=== PATIENT | male | born 1940 | race Caucasian/White ===

== ENCOUNTER 2017-04-08 21:13 | Emergency (ER) | payer MEDICARE, OTHER ==
[~2017-04-08] VITALS: Ht 172.7 cm; Wt 72.7 kg
[~2017-04-08 21:13] MED LIST: ASPIR-LOW81 MG PO; ASPIRIN E.C. 8181 MG PO; CLOPIDOGREL PO; HCTZ 25MG25 MG PO; LIPITOR20 MG PO; LISINOPRIL10 MG PO; NASONEX SPRAY; NITROQUICK0.4 MG SL; PRILOSEC 20MG20 MG PO; PRILOSEC40 MG PO; ZOCOR 40MG40 MG PO; ZOLOFT 100MG100 MG PO
[2017-04-08 21:14] VITALS: BP 185/84
[2017-04-08] MEDS ORDERED: ZANTAC 150MG T150 MG PO (21:39)
[2017-04-08] MEDS ORDERED: LIPITOR 10MG10 MG PO (21:40)
[2017-04-08] MEDS ORDERED: EXELON PAT4.6 MG/24 TD (21:40)
[2017-04-08] MEDS ORDERED: VITAMIN D31000 I1 PO (21:41)
[2017-04-08] MEDS ORDERED: FOLIC ACID 40400 MCG PO (21:41)
[2017-04-08] MEDS ORDERED: PROBIOTIC FORMU1 CAP PO (21:42)
[2017-04-08] MEDS ORDERED: IMODIUM 2MG CAPS2 MG PO (21:42)
[2017-04-08 23:51] VITALS: PULSE 57
== END 2017-04-08 23:51 | disposition home or self-care (01) ==
LOC: COL.ER 21:13
DX: S00.03XA Contusion of scalp, initial encounter (principal); I10 Essential (primary) hypertension; F03.90 Unspecified dementia, unspecified severity, without behavioral disturbance, psychotic disturbance, mood disturbance, and anxiety; E78.5 Hyperlipidemia, unspecified; Z79.82 Long term (current) use of aspirin; W01.198A Fall on same level from slipping, tripping and stumbling with subsequent striking against other object, initial encounter; Y92.009 Unspecified place in unspecified non-institutional (private) residence as the place of occurrence of the external cause

== ENCOUNTER → 2017-04-27 | Outpatient (CLI) | payer MEDICARE, OTHER ==
[~2017-04-27] MED LIST changes: +EXELON PAT4.6 MG/24 TD; +FOLIC ACID 40400 MCG PO; +IMODIUM 2MG CAPS2 MG PO; +LIPITOR 10MG10 MG PO; +PROBIOTIC FORMU1 CAP PO; +VITAMIN D31000 I1 PO; +ZANTAC 150MG T150 MG PO
== END ==
LOC: COL.RAD 09:23
DX: D69.6 Thrombocytopenia, unspecified (principal)

== ENCOUNTER 2017-11-23 09:14 | Day surgery (SDC) | payer MEDICARE, OTHER ==
[~2017-11-23] VITALS: Ht 172.7 cm; Wt 69.9 kg
[2017-11-23] VITALS (7 sets, daily range): BP systolic 109–156; BP diastolic 62–91; PULSE 45–545; TEMP 97.5–97.9
[2017-11-23] MEDS ORDERED: PRIL40 PO (09:50)
== END 2017-11-23 12:43 | disposition home or self-care (01) ==
LOC: SDCO 09:14
DX: D12.2 Benign neoplasm of ascending colon (principal); K63.5 Polyp of colon; K64.0 First degree hemorrhoids; K57.30 Diverticulosis of large intestine without perforation or abscess without bleeding; K29.30 Chronic superficial gastritis without bleeding; K31.7 Polyp of stomach and duodenum; K44.9 Diaphragmatic hernia without obstruction or gangrene; K21.9 Gastro-esophageal reflux disease without esophagitis; D64.9 Anemia, unspecified; K58.0 Irritable bowel syndrome with diarrhea; I25.10 Atherosclerotic heart disease of native coronary artery without angina pectoris; E78.00 Pure hypercholesterolemia, unspecified; I10 Essential (primary) hypertension; G62.9 Polyneuropathy, unspecified; Z79.82 Long term (current) use of aspirin; Z88.0 Allergy status to penicillin; Z88.2 Allergy status to sulfonamides; Z88.1 Allergy status to other antibiotic agents
CPT/HCPCS: J2704; J3010; J7030

== ENCOUNTER 2019-02-02 15:58 | Observation (INO) | payer MEDICARE, OTHER ==
[~2019-02-02] VITALS: Ht 172.7 cm; Wt 72.8 kg
[~2019-02-02 15:58] MED LIST changes: +HCTZ 25MG TAB25 MG PO; -HCTZ 25MG25 MG PO; -NITROQUICK0.4 MG SL; +NITROSTAT0.4 MG/TAB SL; +PRIL40 PO
[2019-02-02 16:33] LABS: BASO % 0.4 % (0.0-2.0); EOS # 0.1 (0.0-0.7); EOS % 1.7 % (0-4.0); GRAN % 70.5 % (42.2-75.2); HEMATOCRIT 37.7 % (42.0-52.0); HEMOGLOBIN 12.6 g/dl (13.5-18.0); LYMPH # 1.3 (1.2-3.4); LYMPH % 18.8 % (20.0-51.0); MEAN CELL VOLUME 95 fl (80.0-100.0); MEAN CORPUSCULAR HEMOGLOBIN 32 pg (27.0-31.0); MEAN CORPUSCULAR HGB CONC 33 g/dl (33.0-37.0); MEAN PLATELET VOLUME 12.2 fl (7.4-10.4); MONO # 0.6 (0.1-0.6); MONO % 8.3 % (1.7-9.3); PLATELET COUNT 106 K/mm3 (130-400); RED BLOOD COUNT 3.98 M/mm3 (4.20-5.60); REDCELL DISTRIBUTION WIDTH-CV 13.4 % (11.5-14.5)
[2019-02-02 16:46] LABS: PROTHROMBIN TIME 11.2 SECONDS (9.7-12.8)
[2019-02-02 16:49] LABS: PARTIAL THROMBOPLASTIN TIME 29.2 SECONDS (26.0-37.0)
[2019-02-02 16:54] LABS: ALBUMIN 3.8 gm/dL (3.5-5.0); BILIRUBIN,TOTAL 0.4 mg/dL (0.0-1.0); CALCIUM 8.8 mg/dL (8.4-10.2); CREATININE, serum 0.65 (0.66-1.25); POTASSIUM 3.4 mmol/L (3.4-5.0); TOTAL PROTEIN 6.9 gm/dL (6.4-8.2)
[2019-02-02 17:05] LABS: TROPONIN-I 0.019 ng/mL (0.000-0.035)
--- NOTE | 2019-02-02 19:30 | NUR ---
Patient arrived to the unit at this time to room 354.
[2019-02-02] MEDS ORDERED: PROBIOTIC FORMU1 CAP PO (19:49)
[2019-02-02] MEDS ORDERED: FOLIC ACID 40400 MCG PO (19:49)
[2019-02-02] MEDS ORDERED: VITAMIN B12 781 TAB PO (19:50)
[2019-02-02] MEDS ORDERED: ASPIRIN 81M81 MG/TA2 PO (19:50)
[2019-02-02 20:19] VITALS: BP 131/59; PULSE 60; TEMP 97.7
[2019-02-02 20:31] VITALS: BP 131/59; PULSE 60; TEMP 97.7
--- NOTE | 2019-02-02 23:30 | NUR ---
Patient resting in bed. Initial assessment completed. MARTÍN cD completed the med rec by calling the patients . Denies any pain at this time. Will be NPO at 0000. NS started at 30 ml/hr to IV in left AC. Denies any further needs at this time. Call light within reach.
[2019-02-02 23:56] VITALS: BP 114/58; PULSE 56; TEMP 97.4
[2019-02-03] VITALS (43 sets, daily range): BP systolic 117–177; BP diastolic 49–80; PULSE 53–57; TEMP 97.6–97.8; O2SAT 92–98
--- NOTE | 2019-02-03 04:07 | NUR ---
Patient has been resting in bed. Has had no complaints of chest pain since arriving to the unit. Has been NPO since 0000.
--- NOTE | 2019-02-03 05:49 | NUR ---
Patient had uneventful night. Resting in bed. Denied chest pain. NPO since 0000. Pleasant with cares. No further needs at this time. Call light within reach.
[2019-02-03 07:02] LABS: BASO % 0.5 % (0.0-2.0); EOS # 0.1 (0.0-0.7); HEMATOCRIT 38.1 % (42.0-52.0); HEMOGLOBIN 12.8 g/dl (13.5-18.0); LYMPH # 1.2 (1.2-3.4); LYMPH % 20.1 % (20.0-51.0); MEAN CELL VOLUME 94 fl (80.0-100.0); MEAN CORPUSCULAR HEMOGLOBIN 32 pg (27.0-31.0); MEAN CORPUSCULAR HGB CONC 34 g/dl (33.0-37.0); MEAN PLATELET VOLUME 12.1 fl (7.4-10.4); MONO # 0.6 (0.1-0.6); MONO % 10.1 % (1.7-9.3); PLATELET COUNT 91 K/mm3 (130-400); RED BLOOD COUNT 4.06 M/mm3 (4.20-5.60); REDCELL DISTRIBUTION WIDTH-CV 13.4 % (11.5-14.5)
--- NOTE | 2019-02-03 07:03 | NUR ---
Report given to WILLEM Woods
[2019-02-03 07:20] LABS: ALANINE AMINOTRANSFERASE 22 U/L (21-72); ALBUMIN 3.7 gm/dL (3.5-5.0); ALKALINE PHOSPHATASE 59 U/L (50-136); ANION GAP 8 mmol/L (7-16); AST,SGOT 25 U/L (15-37); BILIRUBIN,TOTAL 0.4 mg/dL (0.0-1.0); BLOOD UREA NITROGEN 10 mg/dL (9-20); CALCIUM 8.5 mg/dL (8.4-10.2); CARBON DIOXIDE 27 mmol/L (22-30); CHLORIDE 105 mmol/L (98-107); CHOLESTEROL 145 mg/dL (120-200); CREATININE, serum 0.55 (0.66-1.25); GLUCOSE 100 mg/dL (74-106); HDL CHOLESTEROL 47 mg/dL; LDL CHOLESTEROL 78 mg/dL; POTASSIUM 3.5 mmol/L (3.4-5.0); SODIUM 140 mmol/L (137-145); TOTAL PROTEIN 6.7 gm/dL (6.4-8.2); TRIGLYCERIDE 102 mg/dL
[2019-02-03 07:42] LABS: TROPONIN-I < 0.012 ng/mL (0.000-0.035)
--- NOTE | 2019-02-03 08:00 | NUR ---
Patient resting in bed. Alert to name and partially confused. VSS. INT CDI. Denies pain and discomfort. No SOB or reported chest pain. Telemetry on chest. Patient NPO for procedure. Verbalizes an understanding. No further needs expressed from patient. Call light within reach
--- NOTE | 2019-02-03 08:30 | NUR ---
Patient sitting up in bed eating breakfast, daughter at the bedside. A&O, reporting pain in back. Pain medication requested. VSS, 5L NC O2, no reported SOB. Heels floated. External female catheter in place, to suction, CDI. Yellow, clear urine. No further needs expressed from patient. Call light within reach. Bed alarm on
--- NOTE | 2019-02-03 11:00 | NUR ---
Patient taken by bed to procedure. Consent signed. No further needs expressed from patient.
--- NOTE | 2019-02-03 11:19 | NUR ---
SEE MERGE REPORT FOR MEDICATION ADMINISTRATION TIMES WELL INTRA/POST SEDATION ASSESSMENTS.
--- NOTE | 2019-02-03 12:10 | NUR ---
Pt arrived to ICU room 2 from label sewer via bed. Pt A/Ox3. Pt on bedrest, HOB at 0. HR SB with 1 degree AVB 50s. Pt denies any chest pain. Right femoral dressing c/d/i, soft. Discussed plan of care with pt r/t flat time, medications and transfer to [facility]. Pt verbalized understanding. Call light in reach.
--- NOTE | 2019-02-03 12:25 | NUR ---
Notified JULIA Sanchez with DR LILLY [facility].
--- NOTE | 2019-02-03 12:40 | NUR ---
[facility] in room to pick out hand patient for transfer to [facility].
--- NOTE | 2019-02-03 13:10 | NUR ---
Pt left by stretcher with [facility] at 1300 with Nitro gtt and IVF infusing through left AC IV. Report given to PA at [facility]. 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
== END 2019-02-03 12:00 | disposition short-term general hospital (02) ==
LOC: COL.ER 15:58 → MEDICAL 18:12
PROVIDERS: Emergency Medicine; Nurse Practitioner Family; ADMIT Internal Medicine
DX: I25.110 Atherosclerotic heart disease of native coronary artery with unstable angina pectoris (principal); I73.9 Peripheral vascular disease, unspecified; I24.9 Acute ischemic heart disease, unspecified; I45.10 Unspecified right bundle-branch block; I11.9 Hypertensive heart disease without heart failure; I49.9 Cardiac arrhythmia, unspecified; D69.6 Thrombocytopenia, unspecified; E78.5 Hyperlipidemia, unspecified; K21.9 Gastro-esophageal reflux disease without esophagitis; F03.90 Unspecified dementia, unspecified severity, without behavioral disturbance, psychotic disturbance, mood disturbance, and anxiety; Z95.1 Presence of aortocoronary bypass graft; Z79.82 Long term (current) use of aspirin; Z87.891 Personal history of nicotine dependence; Z88.1 Allergy status to other antibiotic agents; Z88.0 Allergy status to penicillin; Z88.2 Allergy status to sulfonamides; Z79.899 Other long term (current) drug therapy; Z79.891 Long term (current) use of opiate analgesic; Z82.49 Family history of ischemic heart disease and other diseases of the circulatory system; Z80.9 Family history of malignant neoplasm, unspecified; Z82.0 Family history of epilepsy and other diseases of the nervous system
CPT/HCPCS: J1644; J2250; J3010; J7030; Q9967

== ENCOUNTER 2019-05-29 14:39 | Outpatient (RCR) | payer MEDICARE, OTHER ==
[~2019-05-29 14:39] MED LIST changes: +ASPIRIN 81M81 MG/TA2 PO; +VITAMIN B12 781 TAB PO
== END 2019-05-30 | disposition home or self-care (01) ==
LOC: COL.CR
DX: Z48.812 Encounter for surgical aftercare following surgery on the circulatory system (principal); Z95.1 Presence of aortocoronary bypass graft; Z95.2 Presence of prosthetic heart valve

== ENCOUNTER 2019-06-26 15:21 | Outpatient (RCR) | payer MEDICARE, OTHER | END 2019-07-05 06:16 | disposition home or self-care (01) | LOC: COL.CR 15:21 | DX: Z48.812 Encounter for surgical aftercare following surgery on the circulatory system (principal); Z95.1 Presence of aortocoronary bypass graft; Z95.2 Presence of prosthetic heart valve ==

== ENCOUNTER 2019-11-30 13:45 | Outpatient (RCR) | payer MEDICARE, OTHER | END 2020-01-04 | disposition home or self-care (01) | LOC: WSC | DX: R29.898 Other symptoms and signs involving the musculoskeletal system (principal); Z91.81 History of falling ==

== ENCOUNTER 2020-01-29 06:14 | Day surgery (SDC) | payer MEDICARE, OTHER ==
[~2020-01-29] VITALS: Ht 175.3 cm; Wt 72.3 kg
[2020-01-29 07:07] VITALS: BP 124/76; PULSE 66; TEMP 98.2
[2020-01-29] MEDS ORDERED: PRIL40 PO (07:32)
[2020-01-29] MEDS ORDERED: K-DUR20 MEQ PO (07:33)
--- NOTE | 2020-01-29 07:35 | NUR ---
TO RM AT 0624- CALL LIGHT IN REACH ANSWERED MOST OF THE MEDICAL HISTORY QUESTIONS AND PROVIDED LIST OF MEDICATIONS. AT BEDSIDE
[2020-01-29 11:00] VITALS: BP 132/87; PULSE 72; TEMP 98.1
--- NOTE | 2020-01-29 11:00 | NUR ---
TO RM 8 PER CART FROM PACU. DROWSY, BUT ANSWERS QUESTIONS WITH A NOD. AT BEDSIDE. DENIES PAIN OR DISCOMFORT AT CURRENT TIME. HAS SOME BLOOD SALIVA SWABBED OUT. ATTEMPTED TO TAKE A FEW SIPS, BUT LET THEM RUN DOWN HIS LIP. DR BANDA TALKED WITH PATIENTS .
[2020-01-29 11:15] VITALS: BP 125/73; PULSE 63; TEMP 98.1
--- NOTE | 2020-01-29 11:15 | NUR ---
PATIENTS TEETH DROP DOWN EVERY TIME PATIENT OPENS MOUTH OR ATTEMPTS TO TAKE A SIP.
[2020-01-29 11:30] VITALS: BP 143/65; PULSE 65
--- NOTE | 2020-01-29 11:30 | NUR ---
ATTEMPTING TO EAT A FEW BITES OF APPLE SAUCE. DUE TO DENTURE FALLING DOWN, UNABLE TO EAT. DR BANDA CALLED.
[2020-01-29 11:45] VITALS: BP 145/69; PULSE 60
--- NOTE | 2020-01-29 11:45 | NUR ---
DR BANDA STATED HE CAN BE DISCHARGED, CONTINUE SAME MEDICATIONS. HE ALSO SAID IF PATIENT CAN'T KEEP DENTURES UP THAT HE CAN LEAVE THEM OUT.
--- NOTE | 2020-01-29 12:48 | NUR ---
REMOVED DENTURES, SWABBED OUT MOUTH TO CLEAN IT OUT BLOODY SALIVA. C/O INCREASED PAIN AND SORE THROAT. RECEIVED PERCOCET 5/325MG 1 TAB. ABLE TO SWALLOW PAIN MEDICATION.
--- NOTE | 2020-01-29 13:00 | NUR ---
AMBULATED TO BATHROOM WITH ASSIST FROM NURSE AND HIS . VOIDED AND AMBULATED BACK TO .
--- NOTE | 2020-01-29 13:10 | NUR ---
RECEIVED DISCHARGE INSTRUCTIONS AND VERALIZED UNDERSTANDING. DISCONTINUED IV AND INT- CATHETER INTACT. PATIENTS ASSISTING HIM DRESSED.
[2020-01-29 13:11] VITALS: BP 132/87; PULSE 72; TEMP 98.7
--- NOTE | 2020-01-29 13:25 | NUR ---
DISCHARGED PER WC BY NURSING STAFF TO PRIVATE CAR IN CARE OF DARSHANA. PATIENT TRANSFERED SELF TO CAR WELL.
== END 2020-01-29 13:40 | disposition home or self-care (01) ==
LOC: SDCO 06:14
DX: K02.9 Dental caries, unspecified (principal); D16.4 Benign neoplasm of bones of skull and face; E78.5 Hyperlipidemia, unspecified; I25.119 Atherosclerotic heart disease of native coronary artery with unspecified angina pectoris; I25.2 Old myocardial infarction; I10 Essential (primary) hypertension; I34.0 Nonrheumatic mitral (valve) insufficiency; I35.0 Nonrheumatic aortic (valve) stenosis; J44.9 Chronic obstructive pulmonary disease, unspecified; R73.03 Prediabetes; D69.6 Thrombocytopenia, unspecified; G89.29 Other chronic pain; K21.9 Gastro-esophageal reflux disease without esophagitis; M79.641 Pain in right hand; F03.90 Unspecified dementia, unspecified severity, without behavioral disturbance, psychotic disturbance, mood disturbance, and anxiety; H54.8 Legal blindness, as defined in USA; Z95.1 Presence of aortocoronary bypass graft; Z79.899 Other long term (current) drug therapy; Z95.0 Presence of cardiac pacemaker; Z95.5 Presence of coronary angioplasty implant and graft; Z87.891 Personal history of nicotine dependence; Z88.0 Allergy status to penicillin; Z88.1 Allergy status to other antibiotic agents; Z88.2 Allergy status to sulfonamides; Z90.49 Acquired absence of other specified parts of digestive tract; Z95.4 Presence of other heart-valve replacement; Z79.82 Long term (current) use of aspirin; Z20.828 Contact with and (suspected) exposure to other viral communicable diseases; Z80.1 Family history of malignant neoplasm of trachea, bronchus and lung; Z80.3 Family history of malignant neoplasm of breast
CPT/HCPCS: J0330; J1100; J2405; J2704; J3010; J7030

== ENCOUNTER 2021-11-19 12:56 | Outpatient (RCR) | payer MEDICARE, OTHER ==
[~2021-11-19 12:56] MED LIST changes: +K-DUR20 MEQ PO
== END 2021-11-23 ==
LOC: WSST
DX: R05.9 Cough, unspecified (principal); R09.89 Other specified symptoms and signs involving the circulatory and respiratory systems

== ENCOUNTER 2021-11-19 12:59 | Outpatient (RCR) | payer MEDICARE, OTHER | END 2021-11-23 | disposition home or self-care (01) | LOC: MKS.ESL.PT | DX: R26.89 Other abnormalities of gait and mobility (principal) ==

== ENCOUNTER 2021-12-01 14:37 | Emergency (ER) | payer MEDICARE, OTHER ==
[~2021-12-01] VITALS: Ht 172.7 cm; Wt 63.6 kg
[2021-12-01 14:54] VITALS: TEMP 97.4
[2021-12-01 16:01] LABS: BASO % 0.2 % (0.0-2.0); GRAN # 7.1 K/mm3 (1.4-6.5); HEMOGLOBIN 14.2 g/dl (13.5-18.0); LYMPH # 0.7 K/mm3 (1.2-3.4); LYMPH % 7.8 % (20.0-51.0); MEAN CELL VOLUME 93 fl (80.0-100.0); MEAN CORPUSCULAR HEMOGLOBIN 32 pg (27-31); MEAN CORPUSCULAR HGB CONC 35 g/dl (33.0-37.0); MEAN PLATELET VOLUME 12.5 fl (7.4-10.4); MONO # 0.6 K/mm3 (0.1-0.6); MONO % 6.8 % (1.7-9.3); PLATELET COUNT 108 K/mm3 (130-400); RED BLOOD COUNT 4.42 M/mm3 (4.20-5.60); REDCELL DISTRIBUTION WIDTH-CV 12.8 % (11.5-14.5)
[2021-12-01 16:23] LABS: BILIRUBIN,TOTAL 1.2 mg/dL (0.2-1.2); CALCIUM 9.6 mg/dL (8.4-10.2); CREATININE, serum 0.7 mg/dL (0.72-1.25); MAGNESIUM 2.9 mg/dL (1.6-2.6); POTASSIUM 3.9 mmol/L (3.5-4.5); TOTAL PROTEIN 7.7 gm/dL (6.2-8.1)
[2021-12-01] MEDS ORDERED: MIRALAX238G PO (17:22)
[2021-12-01 18:23] VITALS: BP 116/70; PULSE 66
== END 2021-12-01 18:23 | disposition home or self-care (01) ==
LOC: COL.ER 14:37
PROVIDERS: Emergency Medicine
DX: K59.00 Constipation, unspecified (principal); K31.89 Other diseases of stomach and duodenum; Z90.49 Acquired absence of other specified parts of digestive tract; Z87.891 Personal history of nicotine dependence
CPT/HCPCS: J7120; Q9967

== ENCOUNTER → 2021-12-04 | Outpatient (CLI) | payer MEDICARE, OTHER ==
[~2021-12-04] MED LIST changes: +MIRALAX238G PO
== END ==
LOC: COL.RAD 13:55
DX: R13.10 Dysphagia, unspecified (principal)

== ENCOUNTER 2021-12-23 13:00 | Outpatient (RCR) | payer MEDICARE, OTHER | END 2021-12-24 | disposition home or self-care (01) | LOC: WSST | DX: R13.10 Dysphagia, unspecified (principal); R05.9 Cough, unspecified ==

== ENCOUNTER 2021-12-23 13:45 | Outpatient (RCR) | payer MEDICARE, OTHER ==
[2022-01-20] MEDS ORDERED: LEXAPRO 10MG10 MG PO (09:34)
== END 2021-12-24 | disposition home or self-care (01) ==
LOC: MKS.ESL.PT
DX: R26.89 Other abnormalities of gait and mobility (principal)

== ENCOUNTER 2022-06-03 12:45 | Outpatient (RCR) | payer MEDICARE, OTHER ==
[~2022-06-03 12:45] MED LIST changes: +LEXAPRO 10MG10 MG PO
== END 2022-06-23 | disposition home or self-care (01) ==
LOC: WSST
DX: R13.12 Dysphagia, oropharyngeal phase (principal); K11.7 Disturbances of salivary secretion

== ENCOUNTER 2022-10-08 11:01 | Emergency (ER) | payer MEDICARE, OTHER ==
[~2022-10-08] VITALS: Ht 172.7 cm; Wt 61.0 kg
[2022-10-08 11:15] VITALS: TEMP 98.6
[2022-10-08] MEDS ORDERED: NORCO 325 MG-51 TAB PO (12:44)
[2022-10-08 13:06] VITALS: BP 131/65; PULSE 60
== END 2022-10-08 13:08 | disposition home or self-care (01) ==
LOC: COL.ER 11:01
DX: S09.90XA Unspecified injury of head, initial encounter (principal); S32.018A Other fracture of first lumbar vertebra, initial encounter for closed fracture; Z86.59 Personal history of other mental and behavioral disorders; W19.XXXA Unspecified fall, initial encounter